=== PATIENT | male | born 1985 | race Caucasian/White ===

== ENCOUNTER 2020-01-30 23:28 | Emergency (ER) | payer BC ==
[~2020-01-30] VITALS: Ht 182.9 cm; Wt 102.1 kg
[2020-01-31 00:11] LABS: ABSOLUTE BASOPHILS 0.1 thou/uL (0.0-0.2); ABSOLUTE EOSINOPHILS 0.2 thou/uL (0.0-0.7); ABSOLUTE LYMPHOCYTES 2.9 thou/uL (0.8-5.3); ABSOLUTE MONOCYTES 0.6 thou/uL (0.0-1.2); ABSOLUTE NEUTROPHILS 8.1 thou/uL (1.6-8.1); BASOPHILS 0.5 %; EOSINOPHILS 1.6 %; HEMATOCRIT 44.9 % (42.0-52.0); HEMOGLOBIN 15.7 gm/dL (14.0-18.0); LYMPHOCYTES 24.7 %; MCH 29.9 pg (26.0-34.0); MCV 85.5 fL (80.0-100.0); MONOCYTES 4.9 %; NUCLEATED RBCS 0 /100WBC; PLATELET COUNT* 157 thou/uL (150-400); POLYS 68.3 %; RBC 5.24 mil/uL (4.50-6.00); RDW-CV 12.8 % (10.5-14.5); WBC 11.8 thou/uL (4.0-11.0)
[2020-01-31 00:21] LABS: CALCIUM 8.5 mg/dL (8.5-10.1); CREATININE 1.4 mg/dL (0.6-1.3); POTASSIUM 3.4 mmol/L (3.5-5.1)
[2020-01-31 00:26] LABS: ALBUMIN 4.1 g/dL (3.4-5.0); MAGNESIUM 1.9 mg/dL (1.8-2.4); TOTAL BILIRUBIN 0.5 mg/dL (<0.1-1.0); TOTAL PROTEIN 7.4 g/dL (6.4-8.2)
[2020-01-31 01:38] LABS: URINE BILIRUBIN NEGATIVE (Negative); URINE BLOOD NEGATIVE (Negative); URINE CLARITY CLEAR; URINE COLOR YELLOW; URINE GLUCOSE-RANDOM NEGATIVE (Negative); URINE KETONES NEGATIVE (Negative); URINE LEUKOCYTES-REFLEX NEGATIVE (Negative); URINE NITRITE-REFLEX NEGATIVE (Negative); URINE PROTEIN NEGATIVE (Negative); URINE SPECIFIC GRAVITY >= 1.030 (1.005-1.030); URINE UROBILINOGEN 0.2 E.U./dl (0.2-1.0)
[2020-01-31 01:46] LABS: AMP/METHAMP Negative (Negative); BARBITURATES Negative (Negative); BENZODIAZEPINES Negative (Negative); COCAINE Negative (Negative); METHADONE Negative (Negative); OPIATES Negative (Negative); PCP Negative (Negative); THC POSITIVE (Negative)
[2020-01-31] MEDS ORDERED: ZOFRAN ODT4 MG PO (03:16)
[2020-01-31 03:19] VITALS: BP 92/48
--- NOTE | 2020-01-31 09:27 | EKG ---
[place] [address] ELECTROCARDIOGRAM REPORT Name: KHALIDA DAVENPORT Room: [facility]#: [id number] Admission: 01/30/20 Attend Phys: Discharge: 01/31/20 Date of : 83 Date of Service: 01/31/20 0004 Report #: [id number] THIS REPORT FOR: //name// [facility] ED Test Date: 2020-01-31 Test Time: 00:04:30 Pat Name: KHALIDA DAVENPORT Department: Room: Gender: Analysis Tester: : 1985 Requested By: Courtney Judge Order Number: [id number] MD: Luke Pool Measurements Intervals [place] Rate: 49 P: 23 MS: 133 QRS: 34 QRSD: 114 T: 20 QT: 421 QTc: 381 Interpretive Statements Sinus bradycardia Probable left ventricular hypertrophy No previous ECG available for comparison Electronically Signed On 01-31-2020 9:27:04 CDT by Luke Pool [email or web address] <ELECTRONICALLY SIGNED> By: Luke Pool MD, [facility] 01/31/20 0927 0004 0004 Luke Pool MD, FACC /EPI
--- NOTE | 2020-01-31 09:28 | EKG ---
[place] [address] ELECTROCARDIOGRAM REPORT Name: KHALIDA DAVENPORT Room: [facility]#: [id number] Admission: 01/30/20 Attend Phys: Discharge: 01/31/20 Date of : 83 Date of Service: 01/31/20221 Report #: [id number] THIS REPORT FOR: //name// [facility] ED Test Date: 2020-01-31 Test Time: 02:22:54 Pat Name: KHALIDA DAVENPORT Department: Room: Gender: Corporate Compliance Officer: : 1985 Requested By: Courtney Judge Order Number: [id number] MD: Luke Pool Measurements Intervals [place] Rate: 43 P: 34 [place]: 137 QRS: 56 QRSD: 110 T: -24 QT: 481 QTc: 407 Interpretive Statements Sinus bradycardia Probable left ventricular hypertrophy Inferior infarct, age indeterminate Electronically Signed On 01-31-2020 9:28:39 CDT by Luke Pool [email or web address] <ELECTRONICALLY SIGNED> By: Luke Pool MD, [facility] 01/31/2028 1 1 Luke Pool MD, FACC /EPI
== END 2020-01-31 03:19 | disposition home or self-care (01) ==
LOC: M.ERS 23:28
PROVIDERS: Emergency Medicine
DX: R11.2 Nausea with vomiting, unspecified (principal); F17.210 Nicotine dependence, cigarettes, uncomplicated; Z88.6 Allergy status to analgesic agent